=== PATIENT | female | born 1970 | race Asian ===

== ENCOUNTER 2021-07-09 03:15 | Emergency (ER) | payer OTHER ==
[~2021-07-09] VITALS: Ht 152.4 cm; Wt 61.4 kg
[2021-07-09 03:36] VITALS: BP 139/94
== END 2021-07-09 05:17 | disposition home or self-care (01) ==
LOC: EMS 03:15
DX: U07.1 COVID-19 (principal); R19.7 Diarrhea, unspecified; I10 Essential (primary) hypertension
CPT/HCPCS: 99283; U0003